=== PATIENT | female | born 1940 | race Asian ===

== ENCOUNTER 2018-04-04 12:20 | Inpatient (IN) | payer OTHER, BC ==
[~2018-04-04] VITALS: Ht 149.9 cm; Wt 61.5 kg
[2018-04-04 12:36] VITALS: BP_SYST 133
[2018-04-04] MEDS ORDERED: LORA10TA7 PO (12:45)
[2018-04-04] MEDS ORDERED: ALLO100T PO (12:45)
[2018-04-04] MEDS ORDERED: DIFL5DRO OP (12:45)
[2018-04-04] MEDS ORDERED: HYDC.5% TP (12:45)
[2018-04-04] MEDS ORDERED: NIFE-2 PO (12:45)
[2018-04-04] MEDS ORDERED: ERGO500020 PO (12:45)
[2018-04-04] MEDS ORDERED: FOLI-43 PO (12:45)
[2018-04-04] MEDS ORDERED: COMBIGAN OP (12:45)
[2018-04-04] MEDS ORDERED: COR12.5 PO (12:45)
[2018-04-04] MEDS ORDERED: FAMO20TA8 PO (12:45)
[2018-04-04] MEDS ORDERED: SIMV40TA5 PO (12:45)
[2018-04-04] MEDS ORDERED: SITA100T11 PO (12:45)
[2018-04-04] MEDS ORDERED: NEPH PO (12:45)
[2018-04-04] MEDS ORDERED: ASA81 PO (12:45)
[2018-04-04] MEDS ORDERED: ACET-2634 PO (12:45)
[2018-04-04] MEDS ORDERED: GABA-531 PO (12:45)
[2018-04-04] MEDS ORDERED: OMEG1CAP55 PO (12:45)
[2018-04-04 12:58] LABS: HEMATOCRIT 28.3 % (36-48); HEMOGLOBIN 9.1 g/dL (12.0-16.0); MEAN CORPUSCULAR HEMOGLOBIN 34 pg (27-31); MEAN CORPUSCULAR HGB CONC 32 % (32-36); MEAN CORPUSCULAR VOLUME 106 fL (79.0-98.0); PLATELET COUNT (AUTO) 181 K/uL (130-430); RED BLOOD CELL COUNT(AUTO) 2.67 MIL/uL (4.2-6.2); RED CELL DISTRIBUTION WIDTH 17.3 % (9.0-15.0); WHITE BLOOD COUNT (AUTO) 10.3 K/uL (4.8-10.8)
[2018-04-04 13:16] LABS: ANION GAP 6 (5-15); CALCIUM 8.9 mg/dL (8.4-11.0); CHLORIDE 101 mmol/L (98-107); GLUCOSE 119 mg/dL (70-99); SODIUM SERUM 140 mmol/L (136-145); UREA NITROGEN, BLOOD 23 mg/dL (8-21)
[2018-04-04 13:32] LABS: ALANINE AMINOTRANSFERASE 22 U/L (12-78); ALBUMIN 2.2 g/dL (3.4-4.8); ASPARTATE AMINOTRANSFERASE 18 U/L (10-37); TOTAL BILIRUBIN 0.6 mg/dL (0.0-1.0)
[2018-04-04 13:42] LABS: BAND % (MANUAL) 3 % (0-6); BASOPHILS % (MANUAL) 0 % (0-2); EOSINOPHILS % (MANUAL) 1 % (0-7); LYMPHOCYTES % (MANUAL) 8 % (20-46); MONOCYTES % (MANUAL) 7 % (0-11)
[2018-04-04] MEDS ORDERED: POTASSIUM CHLORIDE 20 MEQ TAB.PRT.SR PO ONE (14:15)
[2018-04-04 15:11] VITALS: BP_SYST 176
[2018-04-04 15:31] VITALS: BP_SYST 176
[2018-04-04 16:45] VITALS: BP_SYST 146
[2018-04-04] MEDS ORDERED: ACETAMINOPHEN 500 MG TABLET PO SCH (19:45)
[2018-04-04 20:00] VITALS: BP_SYST 157
[2018-04-04] MEDS: NITROGLYCERIN 1 INCH (GM) OINT. TP SCH (20:51)
[2018-04-04] MEDS: ALLOPURINOL 100 MG TABLET (ZYLOPRIM) PO SCH (20:52)
[2018-04-04] MEDS: NIFEDIPINE 30 MG TAB.ER.24 PO SCH (20:52)
[2018-04-04] MEDS: GABAPENTIN 300 MG CAPSULE PO SCH (20:52)
[2018-04-04] MEDS: CARVEDILOL 12.5 MG TABLET (COREG) PO SCH (20:52)
[2018-04-04] MEDS: INSULIN REGULAR, HUMAN 100 UNITS/ML, 10 ML VIAL (novoLIN R) SUBCUT PRN (21:13)
[2018-04-05 00:32] VITALS: BP_SYST 135
[2018-04-05] MEDS: NITROGLYCERIN 1 INCH (GM) OINT. TP SCH ×4 (01:20→17:29)
[2018-04-05 08:00] VITALS: BP_SYST 132
[2018-04-05] MEDS: HYDROCORTISONE 0.5%, 28.35 GM TOPICAL CREAM TP SCH ×2 (09:00→21:04)
[2018-04-05] MEDS: CARVEDILOL 12.5 MG TABLET (COREG) PO SCH ×2 (09:00→21:07)
[2018-04-05] MEDS: NIFEDIPINE 30 MG TAB.ER.24 PO SCH ×2 (09:00→21:08)
[2018-04-05] MEDS: NEPHROVITE, (FOLIC ACID/VITAMIN B COMP W-C 1 TAB) PO SCH (09:02)
[2018-04-05] MEDS: FOLIC ACID 1 MG TABLET PO SCH (09:02)
[2018-04-05] MEDS: FAMOTIDINE 20 MG TABLET PO SCH (09:02)
[2018-04-05] MEDS: SIMVASTATIN 40 MG TABLET PO SCH (09:02)
[2018-04-05] MEDS: GABAPENTIN 300 MG CAPSULE PO SCH ×3 (09:03→21:08)
[2018-04-05] MEDS: LORATADINE 10 MG TABLET PO SCH (09:04)
[2018-04-05] MEDS: BRIMONIDINE TARTRATE 0.2% 5 mL EYE DROPS OP SCH ×2 (09:05→21:05)
[2018-04-05] MEDS: TIMOLOL MALEATE 0.5% OPHTHALMIC DROPS 5 ML OP SCH ×2 (09:06→21:04)
[2018-04-05] MEDS: ALLOPURINOL 100 MG TABLET (ZYLOPRIM) PO SCH ×2 (09:07→21:05)
[2018-04-05 12:35] VITALS: BP_SYST 119
[2018-04-05] MEDS ORDERED: SEVE800T8 PO (14:43)
[2018-04-05 16:32] VITALS: BP_SYST 125
[2018-04-05] MEDS ORDERED: AZOEYE (16:36)
[2018-04-05 16:45] VITALS: BP_SYST 125
[2018-04-05] MEDS ORDERED: LevALBUTEROL HCL 1.25 MG/0.5 ML *CONC.* VIAL.NEB (XOPENEX CONC.) INH PRN (16:45)
[2018-04-05] MEDS: SEVELAMER HCL 800 MG TABLET PO SCH (17:28)
[2018-04-05 19:34] VITALS: BP_SYST 136
[2018-04-05] MEDS: OMEGA-3/DHA/EPA/FISH OIL 1 GM CAPSULE PO SCH (21:05)
[2018-04-05] MEDS: DORZOLAMIDE 2% OPHTHALMIC SOLN 5ML OP SCH (21:11)
[2018-04-05] MEDS: PIPERACILLIN/TAZO 2.25G/DEX-IS 50 ML IV SCH (21:13)
[2018-04-05] MEDS: LevALBUTEROL HCL 1.25 MG/0.5 ML *CONC.* VIAL.NEB (XOPENEX CONC.) INH SCH (23:13)
[2018-04-06 01:10] VITALS: BP_SYST 149
[2018-04-06] MEDS: PIPERACILLIN/TAZO 2.25G/DEX-IS 50 ML IV SCH ×3 (05:37→21:30)
[2018-04-06] MEDS: NITROGLYCERIN 1 INCH (GM) OINT. TP SCH ×6 (05:38→23:47)
[2018-04-06 06:35] LABS: ANION GAP 4 (5-15); CALCIUM 9.2 mg/dL (8.4-11.0); CHLORIDE 102 mmol/L (98-107); CREATININE 5.21 mg/dL (0.55-1.30); GLUCOSE 134 mg/dL (70-99); POTASSIUM 4.1 mmol/L (3.5-5.1); SODIUM SERUM 138 mmol/L (136-145); UREA NITROGEN, BLOOD 34 mg/dL (8-21)
[2018-04-06] MEDS: LevALBUTEROL HCL 1.25 MG/0.5 ML *CONC.* VIAL.NEB (XOPENEX CONC.) INH SCH ×2 (07:43→23:18)
[2018-04-06 07:55] LABS: BASOPHILS # (AUTO) 0.1 K/uL (0.0-0.2); BASOPHILS % (AUTO) 0.8 % (0.0-2.0); EOSINOPHILS # (AUTO) 0.2 K/uL (0.0-0.4); EOSINOPHILS % (AUTO) 3.2 % (0.0-4.0); HEMOGLOBIN 8.3 g/dL (12.0-16.0); LYMPHOCYTES # (AUTO) 1.7 K/uL (1.0-5.5); LYMPHOCYTES % (AUTO) 21.9 % (20.5-51.5); MEAN CORPUSCULAR HEMOGLOBIN 34 pg (27-31); MEAN CORPUSCULAR HGB CONC 32 % (32-36); MEAN CORPUSCULAR VOLUME 107 fL (79.0-98.0); MONOCYTES # (AUTO) 1.1 K/uL (0.0-1.0); MONOCYTES % (AUTO) 14.3 % (1.7-9.3); NEUTROPHILS # (AUTO) 4.6 K/uL (1.8-7.7); PLATELET COUNT (AUTO) 166 K/uL (130-430); RED BLOOD CELL COUNT(AUTO) 2.44 MIL/uL (4.2-6.2); RED CELL DISTRIBUTION WIDTH 17.4 % (9.0-15.0); WHITE BLOOD COUNT (AUTO) 7.7 K/uL (4.8-10.8)
[2018-04-06 08:00] VITALS: BP_SYST 142
[2018-04-06 08:10] LABS: NEUTROPHILS % (AUTO) 59.8 % (40.0-70.0)
[2018-04-06] MEDS: OMEGA-3/DHA/EPA/FISH OIL 1 GM CAPSULE PO SCH ×2 (09:00→21:27)
[2018-04-06] MEDS: FAMOTIDINE 20 MG TABLET PO SCH (09:01)
[2018-04-06] MEDS: NIFEDIPINE 30 MG TAB.ER.24 PO SCH ×2 (09:01→21:28)
[2018-04-06] MEDS: GABAPENTIN 300 MG CAPSULE PO SCH ×3 (09:01→14:14)
[2018-04-06] MEDS: CARVEDILOL 12.5 MG TABLET (COREG) PO SCH ×2 (09:01→21:27)
[2018-04-06] MEDS: NEPHROVITE, (FOLIC ACID/VITAMIN B COMP W-C 1 TAB) PO SCH (09:01)
[2018-04-06] MEDS: SEVELAMER HCL 800 MG TABLET PO SCH ×3 (09:01→17:33)
[2018-04-06] MEDS: ASPIRIN 81 MG TAB.CHEW PO SCH (09:01)
[2018-04-06] MEDS: LORATADINE 10 MG TABLET PO SCH (09:02)
[2018-04-06] MEDS: FOLIC ACID 1 MG TABLET PO SCH (09:02)
[2018-04-06] MEDS: SIMVASTATIN 40 MG TABLET PO SCH (09:02)
[2018-04-06] MEDS: ALLOPURINOL 100 MG TABLET (ZYLOPRIM) PO SCH ×2 (09:02→21:28)
[2018-04-06] MEDS: HYDROCORTISONE 0.5%, 28.35 GM TOPICAL CREAM TP SCH ×2 (09:02→21:34)
[2018-04-06] MEDS: TIMOLOL MALEATE 0.5% OPHTHALMIC DROPS 5 ML OP SCH ×2 (09:03→21:33)
[2018-04-06] MEDS: BRIMONIDINE TARTRATE 0.2% 5 mL EYE DROPS OP SCH ×2 (09:03→21:28)
[2018-04-06] MEDS: DORZOLAMIDE 2% OPHTHALMIC SOLN 5ML OP SCH ×2 (09:04→21:27)
[2018-04-06 12:10] VITALS: BP_SYST 143
[2018-04-06 12:15] VITALS: BP_SYST 123
[2018-04-06] MEDS ORDERED: REGADENOSON 0.4 MG/5 ML SYRINGE IVP ONE (13:00)
[2018-04-06] MEDS: INSULIN REGULAR, HUMAN 100 UNITS/ML, 10 ML VIAL (novoLIN R) SUBCUT PRN (17:36)
[2018-04-06 20:00] VITALS: BP_SYST 116
[2018-04-06 23:35] VITALS: BP_SYST 152
[2018-04-07] MEDS: PIPERACILLIN/TAZO 2.25G/DEX-IS 50 ML IV SCH ×3 (05:30→21:36)
[2018-04-07] MEDS: NITROGLYCERIN 1 INCH (GM) OINT. TP SCH ×4 (05:33→23:16)
[2018-04-07 06:42] LABS: ANION GAP 6 (5-15); CALCIUM 9.1 mg/dL (8.4-11.0); CHLORIDE 101 mmol/L (98-107); GLUCOSE 154 mg/dL (70-99); POTASSIUM 3.6 mmol/L (3.5-5.1); SODIUM SERUM 141 mmol/L (136-145); UREA NITROGEN, BLOOD 15 mg/dL (8-21)
[2018-04-07 06:50] LABS: ALANINE AMINOTRANSFERASE 18 U/L (12-78); ALBUMIN 2.1 g/dL (3.4-4.8); ASPARTATE AMINOTRANSFERASE 15 U/L (10-37); PHOSPHORUS 3.1 mg/dL (2.7-4.5); TOTAL BILIRUBIN 0.7 mg/dL (0.0-1.0)
[2018-04-07 06:51] LABS: BASOPHILS % (AUTO) 0.2 % (0.0-2.0); EOSINOPHILS # (AUTO) 0.2 K/uL (0.0-0.4); EOSINOPHILS % (AUTO) 1.9 % (0.0-4.0); HEMATOCRIT 28.7 % (36-48); HEMOGLOBIN 9.2 g/dL (12.0-16.0); LYMPHOCYTES # (AUTO) 1.3 K/uL (1.0-5.5); MEAN CORPUSCULAR HEMOGLOBIN 34 pg (27-31); MEAN CORPUSCULAR HGB CONC 32 % (32-36); MEAN CORPUSCULAR VOLUME 106 fL (79.0-98.0); MONOCYTES # (AUTO) 1.2 K/uL (0.0-1.0); MONOCYTES % (AUTO) 9.4 % (1.7-9.3); NEUTROPHILS # (AUTO) 10.2 K/uL (1.8-7.7); PLATELET COUNT (AUTO) 188 K/uL (130-430); RED BLOOD CELL COUNT(AUTO) 2.69 MIL/uL (4.2-6.2); RED CELL DISTRIBUTION WIDTH 16.9 % (9.0-15.0); WHITE BLOOD COUNT (AUTO) 12.9 K/uL (4.8-10.8)
[2018-04-07 07:46] LABS: NEUTROPHILS % (AUTO) 78.5 % (40.0-70.0)
[2018-04-07] MEDS: LevALBUTEROL HCL 1.25 MG/0.5 ML *CONC.* VIAL.NEB (XOPENEX CONC.) INH SCH ×3 (07:55→23:05)
[2018-04-07 08:00] VITALS: BP_SYST 130
[2018-04-07] MEDS: BRIMONIDINE TARTRATE 0.2% 5 mL EYE DROPS OP SCH ×2 (09:44→21:33)
[2018-04-07] MEDS: DORZOLAMIDE 2% OPHTHALMIC SOLN 5ML OP SCH ×2 (09:45→21:34)
[2018-04-07] MEDS: SEVELAMER HCL 800 MG TABLET PO SCH ×3 (09:45→18:16)
[2018-04-07] MEDS: LORATADINE 10 MG TABLET PO SCH (09:45)
[2018-04-07] MEDS: NEPHROVITE, (FOLIC ACID/VITAMIN B COMP W-C 1 TAB) PO SCH (09:46)
[2018-04-07] MEDS: FAMOTIDINE 20 MG TABLET PO SCH (09:46)
[2018-04-07] MEDS: NIFEDIPINE 30 MG TAB.ER.24 PO SCH ×2 (09:46→21:35)
[2018-04-07] MEDS: OMEGA-3/DHA/EPA/FISH OIL 1 GM CAPSULE PO SCH ×2 (09:46→21:32)
[2018-04-07] MEDS: FOLIC ACID 1 MG TABLET PO SCH (09:46)
[2018-04-07] MEDS: ALLOPURINOL 100 MG TABLET (ZYLOPRIM) PO SCH ×2 (09:46→21:32)
[2018-04-07] MEDS: SIMVASTATIN 40 MG TABLET PO SCH (09:46)
[2018-04-07] MEDS: GABAPENTIN 300 MG CAPSULE PO SCH ×3 (09:46→21:32)
[2018-04-07] MEDS: HYDROCORTISONE 0.5%, 28.35 GM TOPICAL CREAM TP SCH ×2 (09:47→21:33)
[2018-04-07] MEDS: TIMOLOL MALEATE 0.5% OPHTHALMIC DROPS 5 ML OP SCH ×2 (09:48→21:33)
[2018-04-07] MEDS: CARVEDILOL 12.5 MG TABLET (COREG) PO SCH ×2 (10:18→21:32)
[2018-04-07 12:10] VITALS: BP_SYST 120
[2018-04-07] MEDS: INSULIN REGULAR, HUMAN 100 UNITS/ML, 10 ML VIAL (novoLIN R) SUBCUT PRN (12:29)
[2018-04-07 16:10] VITALS: BP_SYST 108
[2018-04-07 19:45] VITALS: BP_SYST 114
[2018-04-07 23:36] VITALS: BP_SYST 103
[2018-04-08] MEDS: NITROGLYCERIN 1 INCH (GM) OINT. TP SCH ×3 (05:50→17:54)
[2018-04-08] MEDS: PIPERACILLIN/TAZO 2.25G/DEX-IS 50 ML IV SCH ×2 (05:50→14:34)
[2018-04-08 07:17] VITALS: BP_SYST 97
[2018-04-08] MEDS: LevALBUTEROL HCL 1.25 MG/0.5 ML *CONC.* VIAL.NEB (XOPENEX CONC.) INH SCH ×2 (07:17→15:15)
[2018-04-08 08:47] VITALS: BP_SYST 113
[2018-04-08] MEDS: SEVELAMER HCL 800 MG TABLET PO SCH ×3 (08:54→17:53)
[2018-04-08] MEDS: CARVEDILOL 12.5 MG TABLET (COREG) PO SCH (09:00)
[2018-04-08] MEDS: NIFEDIPINE 30 MG TAB.ER.24 PO SCH (09:00)
[2018-04-08] MEDS: BRIMONIDINE TARTRATE 0.2% 5 mL EYE DROPS OP SCH (10:11)
[2018-04-08] MEDS: OMEGA-3/DHA/EPA/FISH OIL 1 GM CAPSULE PO SCH (10:12)
[2018-04-08] MEDS: FOLIC ACID 1 MG TABLET PO SCH (10:13)
[2018-04-08] MEDS: NEPHROVITE, (FOLIC ACID/VITAMIN B COMP W-C 1 TAB) PO SCH (10:13)
[2018-04-08] MEDS: SIMVASTATIN 40 MG TABLET PO SCH (10:13)
[2018-04-08] MEDS: ASPIRIN 81 MG TAB.CHEW PO SCH (10:14)
[2018-04-08] MEDS: GABAPENTIN 300 MG CAPSULE PO SCH ×2 (10:14→14:34)
[2018-04-08] MEDS: ALLOPURINOL 100 MG TABLET (ZYLOPRIM) PO SCH (10:14)
[2018-04-08] MEDS: FAMOTIDINE 20 MG TABLET PO SCH (10:14)
[2018-04-08] MEDS: LORATADINE 10 MG TABLET PO SCH (10:14)
[2018-04-08] MEDS: DORZOLAMIDE 2% OPHTHALMIC SOLN 5ML OP SCH (10:17)
[2018-04-08] MEDS: TIMOLOL MALEATE 0.5% OPHTHALMIC DROPS 5 ML OP SCH (10:19)
[2018-04-08] MEDS: HYDROCORTISONE 0.5%, 28.35 GM TOPICAL CREAM TP SCH (10:20)
[2018-04-08 11:10] LABS: BASOPHILS % (AUTO) 0.3 % (0.0-2.0); EOSINOPHILS # (AUTO) 0.3 K/uL (0.0-0.4); EOSINOPHILS % (AUTO) 3.2 % (0.0-4.0); HEMATOCRIT 27.1 % (36-48); HEMOGLOBIN 8.6 g/dL (12.0-16.0); LYMPHOCYTES # (AUTO) 1.2 K/uL (1.0-5.5); LYMPHOCYTES % (AUTO) 11.9 % (20.5-51.5); MEAN CORPUSCULAR HEMOGLOBIN 34 pg (27-31); MEAN CORPUSCULAR HGB CONC 32 % (32-36); MEAN CORPUSCULAR VOLUME 107 fL (79.0-98.0); MONOCYTES # (AUTO) 0.9 K/uL (0.0-1.0); MONOCYTES % (AUTO) 8.5 % (1.7-9.3); NEUTROPHILS # (AUTO) 7.8 K/uL (1.8-7.7); NEUTROPHILS % (AUTO) 76.1 % (40.0-70.0); PLATELET COUNT (AUTO) 175 K/uL (130-430); RED BLOOD CELL COUNT(AUTO) 2.53 MIL/uL (4.2-6.2); RED CELL DISTRIBUTION WIDTH 16.6 % (9.0-15.0); WHITE BLOOD COUNT (AUTO) 10.2 K/uL (4.8-10.8)
[2018-04-08 12:38] VITALS: BP_SYST 102
[2018-04-08] MEDS ORDERED: COMMUNICATION ORDER XX ONE (12:45)
[2018-04-08 13:07] VITALS: BP_SYST 120
[2018-04-08] MEDS: DUREZOL OP SCH ×8 (14:40→16:52)
[2018-04-08] MEDS ORDERED: DOXY100T2 PO (16:34)
[2018-04-08] MEDS ORDERED: ALBMDI INH (16:36)
[2018-04-08 16:40] VITALS: BP_SYST 121
[2018-04-08 18:01] VITALS: BP_SYST 121
== END 2018-04-08 18:28 | disposition home health service (06) | DRG 193 ==
LOC: SED 12:20 → STU 14:21
PROVIDERS: ADMIT Family Medicine; ATTEND Family Medicine
PROC: 5A1D70Z Performance of Urinary Filtration, Intermittent, Less than 6 Hours Per Day (ICD-10-PCS; principal; 2018-04-06)
DX: J18.9 Pneumonia, unspecified organism (principal); N18.6 End stage renal disease; I12.0 Hypertensive chronic kidney disease with stage 5 chronic kidney disease or end stage renal disease; R07.9 Chest pain, unspecified; E11.22 Type 2 diabetes mellitus with diabetic chronic kidney disease; D63.1 Anemia in chronic kidney disease; R10.9 Unspecified abdominal pain; E78.5 Hyperlipidemia, unspecified; Z91.048 Other nonmedicinal substance allergy status; Z79.84 Long term (current) use of oral hypoglycemic drugs; Z79.899 Other long term (current) drug therapy; Z86.73 Personal history of transient ischemic attack (TIA), and cerebral infarction without residual deficits; Z99.2 Dependence on renal dialysis; Z90.49 Acquired absence of other specified parts of digestive tract; Z90.710 Acquired absence of both cervix and uterus; Z82.49 Family history of ischemic heart disease and other diseases of the circulatory system; Z94.7 Corneal transplant status
CPT/HCPCS: 36415; 71045; 71046-TC; 76700-TC; 80048; 80053; 82550-TC; 82962; 83880; 84100-TC; 84484; 85007; 85025; 85027; 85610-TC; 85730-TC; 87081; 90935; 93005; 93017; 93306; 94640; 94760; 99285; A9500; J1815; J2543; J2785; J7030; J7050; J7612

== ENCOUNTER 2019-01-07 10:49 | Emergency (ER) | payer OTHER, BC ==
[~2019-01-07] VITALS: Ht 149.9 cm; Wt 64.9 kg
[~2019-01-07 10:49] MED LIST: ACET-2634 PO; ALBMDI INH; ALLO100T PO; ASA81 PO; AZOEYE; COMBIGAN OP; COR12.5 PO; DIFL5DRO OP; DOXY100T2 PO; ERGO500020 PO; FAMO20TA8 PO; FOLI-43 PO; GABA-531 PO; HYDC.5% TP; LORA10TA7 PO; NEPH PO; NIFE-2 PO; OMEG1CAP55 PO; SEVE800T8 PO; SIMV40TA5 PO; SITA100T11 PO
[2019-01-07 11:00] VITALS: BP_SYST 120
--- NOTE | 2019-01-07 11:00 | NUR ---
Patient to ER bed 3 to gown for evaluation. Side rails up.
--- NOTE | 2019-01-07 11:05 | NUR ---
PATIENT CAME IN BY BLS BECAUSE SHE WAS WALKING OUT OF DIALYSIS WITH WALKER AND TRIPPED. PATIENT FELL ON KNEES FIRST THEN PATIENT STATES SHE HIT HEAD. NO SIGNS OF DICOLORATION OR ABRASION ON HEAD BUT DOES ON KNEES. PATIENT COMPLAINING OF PAIN IN HEAD 5/10 RADIATING TO NECK. PATIENT DENIES DIZZINESS, NAUSEA, AND VOMITING. PATIENT IS ALERT AND ORIENTED X4.
--- NOTE | 2019-01-07 11:30 | NUR ---
ER Dr. CRUZ at bedside examining patient.
--- NOTE | 2019-01-07 14:04 | NUR ---
Patient given written and verbal discharge instructions and verbalizes understanding. ER MD Garza discussed with patient the results and treatment provided. Patient in stable condition. ID arm band removed. Rx of Motrin given. Patient educated on pain management and to follow up with PMD. Pain Scale 0. Opportunity for questions provided and answered. Medication side effect fact sheet provided.
[2019-01-07 14:07] VITALS: BP_SYST 127
== END 2019-01-07 14:04 | disposition home or self-care (01) ==
LOC: SED 10:49
DX: S80.02XA Contusion of left knee, initial encounter (principal); S80.01XA Contusion of right knee, initial encounter; I12.9 Hypertensive chronic kidney disease with stage 1 through stage 4 chronic kidney disease, or unspecified chronic kidney disease; E11.22 Type 2 diabetes mellitus with diabetic chronic kidney disease; N18.9 Chronic kidney disease, unspecified; Z86.73 Personal history of transient ischemic attack (TIA), and cerebral infarction without residual deficits; Z88.1 Allergy status to other antibiotic agents; Z88.8 Allergy status to other drugs, medicaments and biological substances; Z91.041 Radiographic dye allergy status; Z79.82 Long term (current) use of aspirin; Z79.899 Other long term (current) drug therapy; W01.0XXA Fall on same level from slipping, tripping and stumbling without subsequent striking against object, initial encounter; Y93.89 Activity, other specified; Y92.89 Other specified places as the place of occurrence of the external cause; Y99.8 Other external cause status
CPT/HCPCS: 99283

== ENCOUNTER 2021-05-22 08:39 | Emergency (ER) | payer OTHER, BC ==
[~2021-05-22] VITALS: Ht 149.9 cm; Wt 68.0 kg
[~2021-05-22 08:39] MED LIST changes: -NIFE-2 PO; +NIFE-55 PO; +SIMV-46 PO; -SIMV40TA5 PO
[2021-05-22 08:45] VITALS: BP_SYST 167
[2021-05-22 09:44] LABS: ANION GAP 6 (5-15); CALCIUM 9.3 mg/dL (8.4-11.0); CHLORIDE 100 mmol/L (98-107); CREATININE 2.09 mg/dL (0.55-1.30); GLUCOSE 139 mg/dL (70-99); SODIUM SERUM 139 mmol/L (136-145); UREA NITROGEN, BLOOD 16 mg/dL (8-21)
[2021-05-22 09:45] LABS: POTASSIUM 3.7 mmol/L (3.5-5.1)
[2021-05-22 09:47] LABS: BASOPHILS % (AUTO) 1.1 % (0.0-2.0); EOSINOPHILS # (AUTO) 0.1 K/uL (0.0-0.4); EOSINOPHILS % (AUTO) 1.9 % (0.0-4.0); HEMATOCRIT 26.1 % (36-48); HEMOGLOBIN 8.5 g/dL (12.0-16.0); LYMPHOCYTES # (AUTO) 0.4 K/uL (1.0-5.5); LYMPHOCYTES % (AUTO) 10.8 % (20.5-51.5); MEAN CORPUSCULAR HEMOGLOBIN 38 pg (27-31); MEAN CORPUSCULAR HGB CONC 33 % (32-36); MEAN CORPUSCULAR VOLUME 115 fL (79.0-98.0); MONOCYTES # (AUTO) 0.4 K/uL (0.0-1.0); MONOCYTES % (AUTO) 10.8 % (1.7-9.3); NEUTROPHILS # (AUTO) 2.8 K/uL (1.8-7.7); NEUTROPHILS % (AUTO) 75.4 % (40.0-70.0); PLATELET COUNT (AUTO) 81 K/uL (130-430); RED BLOOD CELL COUNT(AUTO) 2.27 MIL/uL (4.2-6.2); RED CELL DISTRIBUTION WIDTH 21.2 % (9.0-15.0); WHITE BLOOD COUNT (AUTO) 3.7 K/uL (4.8-10.8)
[2021-05-22] MEDS ORDERED: OMEP-268 PO (09:52)
[2021-05-22] MEDS ORDERED: VIT1CAPS46 PO (09:52)
[2021-05-22] MEDS ORDERED: MIDO10TA PO (09:52)
[2021-05-22] MEDS ORDERED: LEVO25TA7 PO (09:52)
[2021-05-22] MEDS ORDERED: SER25 PO (09:52)
[2021-05-22] MEDS ORDERED: MEMA5TAB PO (09:52)
[2021-05-22 09:53] LABS: ALANINE AMINOTRANSFERASE 19 U/L (12-78); ALBUMIN 2.7 g/dL (3.4-4.8); ASPARTATE AMINOTRANSFERASE 31 U/L (10-37); TOTAL BILIRUBIN 0.8 mg/dL (0.0-1.0)
[2021-05-22] MEDS ORDERED: MORPHINE 2 MG/ML INJ. SYRINGE IVP ONE (13:00)
[2021-05-22] MEDS ORDERED: HYDR-3917 PO (13:34)
[2021-05-22 13:47] VITALS: BP_SYST 147
== END 2021-05-22 13:47 | disposition home or self-care (01) ==
LOC: SED 08:39
DX: R07.9 Chest pain, unspecified (principal); H57.11 Ocular pain, right eye; I10 Essential (primary) hypertension; E11.9 Type 2 diabetes mellitus without complications; Z88.1 Allergy status to other antibiotic agents; Z88.8 Allergy status to other drugs, medicaments and biological substances; Z79.899 Other long term (current) drug therapy; Z79.82 Long term (current) use of aspirin
CPT/HCPCS: 36415; 71045; 80053; 84484; 85025; 93005; 96374; 99285; J2270